=== PATIENT | female | born 1950 | race Two or more races ===

== ENCOUNTER 2022-01-10 12:24 | Emergency (ER) | payer MEDICARE, OTHER ==
[~2022-01-10] VITALS: Ht 165.1 cm; Wt 70.1 kg
[2022-01-10] MEDS ORDERED: FLUORESCEIN SOD OPTH TEST STRIP OP ONE (13:45)
[2022-01-10] MEDS ORDERED: CIP03OS LEFTEYE (13:47)
[2022-01-10 13:57] VITALS: BP 152/89
== END 2022-01-10 14:03 | disposition home or self-care (01) ==
LOC: ER 12:28
DX: S05.02XA Injury of conjunctiva and corneal abrasion without foreign body, left eye, initial encounter (principal); X58.XXXA Exposure to other specified factors, initial encounter; Y93.89 Activity, other specified; Y92.89 Other specified places as the place of occurrence of the external cause; Y99.8 Other external cause status